=== PATIENT | male | born 1980 | race Two or more races ===

== ENCOUNTER 2019-12-10 17:26 | Emergency (ER) | payer MEDICAID ==
[~2019-12-10] VITALS: Ht 190.5 cm; Wt 75.0 kg
[2019-12-10] MEDS ORDERED: TETANUS, DIPHTHERIA, PERTUSSIS VAC/PF 0.5ML (>7YR OLD) IM ONE (17:45)
[2019-12-10] MEDS ORDERED: HYDROCODONE/ACETAMINOPHEN 10/325MG TABLET PO ONE (17:45)
[2019-12-10] MEDS ORDERED: LIDOCAINE HCL/PF 1% 10 MG/ML 5ML VIAL IJ ONE (17:45)
[2019-12-10] MEDS ORDERED: BACITRACIN ZINC OINT UDPKT TOP ONE (17:45)
[2019-12-10] MEDS ORDERED: KETOROLAC 30MG/ML VIAL IM ONE (17:45)
[2019-12-10] MEDS ORDERED: CEFAZOLIN 1000MG PREMIX 50 ML IV ONE (19:00)
[2019-12-10] MEDS ORDERED: MORPHINE SULFATE 2 MG/ML CPJ (NOT FOR IM USE) IV ONE (21:00)
[2019-12-10 23:03] VITALS: BP 134/76
== END 2019-12-10 23:39 | disposition short-term general hospital (02) ==
LOC: ER 17:26
DX: S62.607A Fracture of unspecified phalanx of left little finger, initial encounter for closed fracture (principal); W26.8XXA Contact with other sharp object(s), not elsewhere classified, initial encounter; Y93.89 Activity, other specified; Y92.89 Other specified places as the place of occurrence of the external cause; Y99.8 Other external cause status
CPT/HCPCS: 12002; 73130; 90471; 90715; 96365; 96372; 96375; 99285; J0690; J1885; J2270; J3490